=== PATIENT | male | born 1945 | race Caucasian/White ===

== ENCOUNTER 2016-05-31 14:27 | Outpatient (CLI) ==
[2016-05-31 15:02] LABS: BASOPHILS % (AUTO) 0.5 % (0.0-3.0); EOSINOPHILS # (AUTO) 0.2 K/ul (0.0-0.7); HEMATOCRIT 38.6 % (42.0-52.0); HEMOGLOBIN 12.4 g/dl (14.0-18.0); IMMATURE GRANULOCYTE % (AUTO) 0.5 % (0.0-5.0); LYMPHOCYTES % (AUTO) 23.1 (10.0-50.0); MEAN CORPUSCULAR HEMOGLOBIN 28.6 pg (27.0-31.0); MEAN CORPUSCULAR HGB CONC 32.1 (31.8-35.4); MEAN CORPUSCULAR VOLUME 88.9 fl (80.0-94.0); MONOCYTES # (AUTO) 0.5 K/uL (0.4-2.0); MONOCYTES % (AUTO) 12.1 (0-10); NEUTROPHILS # (AUTO) 2.6 K/ul (2.0-6.9); NEUTROPHILS % (AUTO) 59.8; PLATELET COUNT 164 10^3/uL (140-440); RED BLOOD COUNT 4.34 10^6/ul (4.70-6.10); WHITE BLOOD COUNT 4.28 K/ul (4.2-10.2)
[2016-05-31 15:19] LABS: ALBUMIN 3.8 g/dL (3.4-5.0); ALBUMIN/GLOBULIN RATIO 1.19; ANION GAP 11.9; BILIRUBIN,TOTAL 0.71 mg/dL (0.00-1.20); BUN/CREATININE RATIO 19.83; CALCIUM 9.2 mg/dL (8.2-10.2); CREATININE 1.21 mg/dL (0.60-1.10); POTASSIUM 3.9 mmol/L (3.5-5.1)
--- NOTE | 2016-05-31 15:54 | CT ---
Examination: CT examination of the abdomen pelvis with intravenous contrast, axial, sagittal, and c oronal reconstructed images. Comparison: None available. Reason for study: Left upper quadrant pain. FINDINGS: Mild bibasilar atelectasis and old granulomatous disease, otherwise within the partially imaged lung bases. There are no pneumothoraces, pleural effusions, or focal consolidation. The ori er, spleen, adrenal glands, and pancreas are unremarkable. The gallbladder has a normal appearing wall without gallstones or pericholecystic inflammatory darnell e. There are multiple low density renal cysts in both kidneys without hydronephrosis, hydroureter, or p erinephric inflammatory change. There is a 5 mm indeterminate density cyst in the left renal mid po le best seen on axial image number 32 that is too small to accurately characterize. There is no foc al bowel dilatation or transition point. The appendix is unremarkable. Atherosclerotic disease is noted within the aorta and distal arterial vasculature. Prostate is prom inent with calcifications centrally. 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 Impression: 1. There is a 5 mm indeterminate/high density cyst in the left renal mid pole that is likely hemorr hagic. If clinical concern exists, ultrasonography may be performed. 2.. The gallbladder appears unremarkable on the CT examination. If clinical concern exists HIDA sc an may be performed.
== END 2016-05-31 14:28 | disposition home or self-care (01) ==
LOC: RAD 14:27
PROVIDERS: ATTEND Internal Medicine
DX: R10.12 Left upper quadrant pain (principal); I10 Essential (primary) hypertension; E11.9 Type 2 diabetes mellitus without complications
CPT/HCPCS: 36415; 80053; 82150; 83690; 85025